=== PATIENT | female | born 1985 | race Caucasian/White ===

== ENCOUNTER → 2016-11-28 | Outpatient (CLI) | payer MEDICAID ==
--- NOTE | 2016-11-28 10:16 | RADIOLOGY REPORT (SQ) ---
EXAM DESCRIPTION: CHEST PA/LATERAL COMPLETED DATE/TIME: 11/28/2016 8:23 am REASON FOR STUDY: OTHER CHEST PAIN COMPARISON: Chest film 09/15/2012 CT angio chest 09/10/2012 EXAM PARAMETERS: NUMBER OF VIEWS: two views TECHNIQUE: Digital Frontal and Lateral radiographic views of the chest acquired. RADIATION DOSE: NA LIMITATIONS: none FINDINGS: LUNGS AND PLEURA: No opacities, masses or pneumothorax. No pleural effusion. MEDIASTINUM AND HILAR STRUCTURES: No masses or contour abnormalities. HEART AND VASCULAR STRUCTURES: Heart normal size. No evidence for failure. BONES: No acute findings. HARDWARE: None in the chest. OTHER: No other significant finding. IMPRESSION: NO SIGNIFICANT RADIOGRAPHIC FINDING IN THE CHEST. TECHNICAL DOCUMENTATION: JOB ID: [id number] [employer]- All Rights Reserved
--- NOTE | 2016-11-28 10:21 | WOMENS IMAGING REPORT ---
EXAM DESCRIPTION: U/S ABDOMEN LIMITED COMPLETED DATE/TIME: 11/28/2016 8:49 am REASON FOR STUDY: RIGHT UPPER QUADRANT PAIN R10.11 RIGHT UPPER QUADRANT PAIN R07.89 OTHER CHEST PA IN COMPARISON: 02/16/2013 TECHNIQUE: Dynamic and static grayscale images acquired of the abdomen and recorded on PACS. Additio nal selected color Doppler and spectral images recorded. LIMITATIONS: None. FINDINGS: PANCREAS: No masses. Visualized pancreatic duct normal caliber. LIVER: 17.2 cm. Increased echogenicity. No masses. LIVER VASCULATURE: Normal directional flow of the main portal vein and hepatic veins. GALLBLADDER: No stones. Normal wall thickness. No pericholecystic fluid. ULTRASOUND-DETECTED CANCINO'S SIGN: Negative. INTRAHEPATIC DUCTS AND COMMON DUCT: CBD and intrahepatic ducts normal caliber. No filling defects. INFERIOR VENA CAVA: Normal flow. AORTA: No aneurysm. RIGHT KIDNEY: Normal size, 12.4 x 5 x 5.6 cm. Normal echogenicity. No solid or suspicious masses. No hydronephrosis. No calcifications. PERITONEAL AND RIGHT PLEURAL SPACE: No ascites or effusions. OTHER: No other significant findings. IMPRESSION: Mild fatty infiltration of the liver. TECHNICAL DOCUMENTATION: JOB ID: [id number] [employer]- All Rights Reserved
== END ==
LOC: RAD 07:35
PROVIDERS: ATTEND Family Medicine
DX: R10.11 Right upper quadrant pain (principal)
CPT/HCPCS: 71020; 76705

== ENCOUNTER → 2016-12-09 | Outpatient (CLI) | payer MEDICAID ==
--- NOTE | 2016-12-09 15:02 | RADIOLOGY REPORT (SQ) ---
EXAM DESCRIPTION: NM HIDA SCAN WITH CCK COMPLETED DATE/TIME: 12/09/2016 1:46 pm REASON FOR STUDY: RUQ ABD PAIN (R10.11) R10.11 RIGHT UPPER QUADRANT PAIN COMPARISON: None. RADIONUCLIDE AND DOSE: DOSAGE RADIONUCLIDE: 5.5 millicuries Tc99m mebrofenin DOSAGE CCK: 2.0 micrograms. DOSAGE MORPHINE: Not required. The route of agent administration: Intravenous TECHNIQUE: Serial imaging right upper quadrant up to 60 minutes following injection of radionuclide. CCK injected after gallbladder visualized. LIMITATIONS: None. FINDINGS: LIVER: Normal visualization without areas of photopenia. INTRA AND EXTRAHEPATIC BILE DUCTS: Normal accumulation of activity. GALLBLADDER: Normal visualization. Calculated Ejection Fraction of 34%. Below the normal value of 35 % or greater. PHYSICAL RESPONSE: Patients presenting complaint was reproduced. OTHER: No other significant finding. IMPRESSION: LOW GALLBLADDER EJECTION FRACTION. EVIDENCE FOR BILIARY DYSKINESIS. NO CYSTIC OR COMMO N DUCT OBSTRUCTION. TECHNICAL DOCUMENTATION: JOB ID: [id number] [employer]- All Rights Reserved
== END ==
LOC: RAD 07:25
PROVIDERS: ATTEND Family Medicine
DX: R10.11 Right upper quadrant pain (principal)
CPT/HCPCS: 78227; A9537; J2805

== ENCOUNTER 2017-05-31 13:51 | Emergency (ER) | payer MEDICAID ==
[2017-05-31 14:02] VITALS: BP 90/55
--- NOTE | 2017-05-31 14:18 | ER Document Report ---
ED General - General Chief Complaint: Toe Injury Stated Complaint: RIGHT PINKY TOE INJURY Mode of Arrival: Wheelchair Information source: Patient TRAVEL OUTSIDE OF THE [place] IN LAST 30 DAYS: No - HPI Notes: 32-year-old female presents today with complaints of right fifth toe pain after she dropped a heavy object on her foot approximately 1 hour ago. Denies head trauma or change in loc. pain is 5/10,throbbing. unable to bear full weight. nothing makes better, ambulation makes worse. tried otc pains taken without full relief. pain is progressive and constant. pt has not tried icing or elevating foot. denies any n/t in foot. denies any other area of injury. Denies fevers, chills, chest pain,palpitations, shortness of breath, dyspnea, nausea, vomiting, diarrhea, abdominal pain, hematuria,blurred vision, double vision, loss of vision, speech changes, LH, dizziness, syncope, headaches, wheezing, ST, URI, neck pain, weakness, bowel or bladder dysfunction, saddle anesthesia, numbness or tingling in bilateral upper or lower extremities equally , muscle paralysis, weakness in bilateral upper or lower extremities equally or rash. Denies IV drug use. E - Related Data Allergies/Adverse Reactions: Baby Powder Adverse Reaction (Intermediate, Uncoded 05/31/17 13:52) Past Medical History - General Information source: Patient - Social History Smoking Status: Unknown if Ever Smoked Family History: Reviewed & Not Pertinent Patient has suicidal ideation: No Patient has homicidal ideation: No Renal/ Medical History: Denies: Hx Peritoneal Dialysis Psychiatric Medical History: Reports: Hx Bipolar Disorder, Hx Depression Past Surgical History: Reports: Hx Section - x3, Hx Tubal Ligation, Hx Vascular Surgery - left arm - Immunizations Immunizations up to date: Yes Hx Diphtheria, Pertussis, Tetanus Vaccination: Yes Review of Systems - Review of Systems Constitutional: No symptoms reported EENT: No symptoms reported Cardiovascular: No symptoms reported Respiratory: No symptoms reported Gastrointestinal: No symptoms reported Genitourinary: No symptoms reported Female Genitourinary: No symptoms reported Musculoskeletal: See HPI Skin: No symptoms reported Hematologic/Lymphatic: No symptoms reported Neurological/Psychological: No symptoms reported Physical Exam - Vital signs Vitals: Temp Pulse Resp BP Pulse Ox 98.1 F 86 16 90/55 L 97 05/31/17 13:59 05/31/17 13:59 05/31/17 13:59 05/31/17 13:59 05/31/17 13:59 - Notes Notes: PHYSICAL EXAMINATION: GENERAL: Well-appearing, well-nourished and in no acute distress. HEAD: Atraumatic, normocephalic. EYES: Pupils equal round and reactive to light, extraocular movements intact, conjunctiva are normal. ENT: Nares patent, oropharynx clear without exudates. Moist mucous membranes. NECK: Normal range of motion, supple without lymphadenopathy LUNGS: Breath sounds clear to auscultation bilaterally and equal. No wheezes rales or rhonchi. HEART: Regular rate and rhythm without murmurs ABDOMEN: Soft, nontender, nondistended abdomen. No guarding, no rebound. No masses appreciated. Female : deferred Musculoskeletal: Normal range of motion, no pitting or edema. No cyanosis. right 5th foot with STS and tenderness on 5th metatarsal bones with palpation on MTJ. Unable to palpate a step-off. No open lesions. squeeze test negative. dtr +2 BLE. Limited APROM. distal pulses + 2 in BUE. full motor and sensory function. No vascular compromise. Ankle exam within normal limits. No noted lacerations, lesions, ulcers or break in the skin. NEUROLOGICAL: Cranial nerves grossly intact. Normal speech, normal gait. Normal sensory, motor exams PSYCH: Normal mood, normal affect. SKIN: Warm, Dry, normal turgor, no rashes or lesions noted. Dictation was performed using [employer] voice recognition software Course - Re-evaluation Re-evalutation: At this time will discharge with return precautions and follow-up recommendations. Verbal discharge instructions given a the bedside and opportunity for questions given. Medication warnings reviewed. Patient is in agreement with this plan and has verbalized understanding of return precautions and the need for primary care follow-up in the next 24-72 hours. After performing a Medical Screening Examination, I estimate there is LOW risk for closed FRACTURE, COMPARTMENT SYNDROME, TENDON RUPTURE, ACUTE NEUROVASCULAR INJURY, or RETAINED FOREIGN BODY, thus I consider the discharge disposition reasonable. Also, there is no evidence or peritonitis, sepsis, or toxicity. I have reevaluated this patient multiple times and no significant life threatening changes are noted. The patient and I have discussed the diagnosis and risks, and we agree with discharging home with close follow-up with the understanding that symptoms and presentations can change. We also discussed returning to the Emergency Department immediately if new or worsening symptoms occur. We have discussed the symptoms which are most concerning (e.g., changing or worsening pain, fever, numbness, weakness, cool or painful digits) that necessitate immediate return. 05/31/17 14:43 - Vital Signs Vital signs: Temp Pulse Resp BP Pulse Ox 98.1 F 86 16 90/55 L 97 05/31/17 13:59 05/31/17 13:59 05/31/17 13:59 05/31/17 13:59 05/31/17 13:59 - Diagnostic Test Radiology reviewed: Reports reviewed Radiology results interpreted by me: 05/31/17 14:43 right toe xray of 5th toe NAD per RAD Discharge - Discharge Clinical Impression: Sprain of toe, fifth, right Qualifiers: Encounter type: initial encounter Qualified Code(s): S93.504A - Unspecified sprain of right lesser toe(s), initial encounter Condition: Good Instructions: Sprained Toe ([facility]) Additional Instructions: Sprained Toe Your toe injury is a sprain. A sprain is an over-stretching or tearing of the ligaments which guard the joints. The injury may require a few weeks of protection while it heals. Toe sprains usually do not require a splint. Instead, the injured toe is taped to an adjacent toe. Ice packs and elevation help reduce swelling. Complete healing takes about three weeks. Sometimes a severe toe sprain may require a special shoe, cast, or walking boot before you can bear weight comfortably on the foot. Your physician has assessed the seriousness of the ligament injury in your toe, and has outlined the initial treatment plan. Understand that this treatment may change, depending on how your toe progresses. If further visits were recommended, it is important that you follow up as instructed. Call the doctor at once if there is severe pain or numbness in the toe. You do not have evidence of a fracture on today's xrays. Your pain is likely to do soft tissue swelling and inflammation. This can last up to 6 weeks before completely resolving. You should continue to apply ice to the area regularly, keep the affected area elevated, and take ibuprofen 600mg every 6 hours as needed for pain. Please return if you have worsening pain, weakness, numbness, notice increasing redness or swelling to the area, develop a fever, or have any other symptoms that are concerning to you. Please follow up with the [facility] [address] [place] [phone] Return immediately for any new or worsening symptoms. Follow up with primary care provider, call tomorrow to make followup appointment. Prescriptions: Meloxicam 7.5 mg PO DAILY #7 tablet Forms: Return to Work Referrals: ILEANA ROA MD [ACTIVE STAFF] - Follow up as needed TAPAN SORIANO MD [COMMUNITY BASED STAFF] - Follow up in 1 week
--- NOTE | 2017-05-31 14:37 | RADIOLOGY REPORT (SQ) ---
EXAM DESCRIPTION: FOOT RIGHT COMPLETE COMPLETED DATE/TIME: 05/31/2017 2:30 pm REASON FOR STUDY: weight to R 5th toe x 1 hour ago, + pain COMPARISON: None. NUMBER OF VIEWS: Three views. TECHNIQUE: AP, lateral and oblique radiographic images acquired of the right foot. LIMITATIONS: None. FINDINGS: MINERALIZATION: Normal. BONES: No acute fracture or dislocation. No worrisome bone lesions. JOINTS: No effusions. SOFT TISSUES: No soft tissue swelling. No foreign body. OTHER: No other significant finding. IMPRESSION: NEGATIVE STUDY OF THE RIGHT FOOT. NO RADIOGRAPHIC EVIDENCE OF ACUTE INJURY. TECHNICAL DOCUMENTATION: JOB ID: [id number] [employer]- All Rights Reserved Reading location - IP/workstation name: [email or web address]
== END 2017-05-31 15:18 | disposition home or self-care (01) ==
LOC: ER 13:51
DX: S93.504A Unspecified sprain of right lesser toe(s), initial encounter (principal); W22.8XXA Striking against or struck by other objects, initial encounter
CPT/HCPCS: 99283

== ENCOUNTER 2018-12-31 05:35 | Day surgery (SDC) | payer MEDICAID ==
[2018-12-28 12:22] LABS: APPEARANCE,URINE SLIGHTLY-CLOUDY; BILIRUBIN,URINE NEGATIVE (NEGATIVE); COLOR,URINE YELLOW; GLUCOSE, URINE NEGATIVE (NEGATIVE); KETONES,URINE NEGATIVE (NEGATIVE); LEUKOCYTE ESTERASE,URINE NEGATIVE (NEGATIVE); NITRITE,URINE NEGATIVE (NEGATIVE); PROTEIN,URINE NEGATIVE (NEGATIVE); URINE SPECIFIC GRAVITY 1.019; UROBILINOGEN,URINE NEGATIVE mg/dL (<2.0)
[2018-12-28 12:45] LABS: ALBUMIN 4.2 g/dL (3.5-5.0); ALKALINE PHOSPHATASE 85 U/L (38-126); ANION GAP 7 (5-19); ASPARTATE AMINO TRANSFERASE 19 U/L (14-36); BILIRUBIN,DIRECT 0.1 mg/dL (0.0-0.4); BILIRUBIN,TOTAL 0.8 mg/dL (0.2-1.3); BLOOD UREA NITROGEN 9 mg/dL (7-20); CALCIUM 9.1 mg/dL (8.4-10.2); CARBON DIOXIDE 27 mmol/L (22-30); CHLORIDE 105 mmol/L (98-107); GLUCOSE 84 mg/dL (75-110); POTASSIUM 4.2 mmol/L (3.6-5.0); TOTAL PROTEIN 7.5 g/dL (6.3-8.2)
[~2018-12-31 05:35] MED LIST: CEFAZOLIN SODIUM 1 GM in DEXTROSE 5%-WATER 50 ML IV PRN; LACTATED RINGERS 1000 ML IV PRN; LIDOCAINE 0.5% INJ-PF (5 MG/ML) 50 ML SDV SUBCUT PRN
[2018-12-31] MEDS ORDERED: HYDROMORPHONE HCL INJ/PF 2 MG/ML AMPULE ONE (06:57)
[2018-12-31] MEDS ORDERED: FENTANYL CITRATE INJ/PF 250 MCG/5 ML AMPULE ONE ×2 (06:57→07:05)
[2018-12-31] MEDS ORDERED: MIDAZOLAM 2 MG/2 ML INJ ONE (06:57)
[2018-12-31] MEDS ORDERED: KETAMINE HCL INJ 500 MG/10 ML VIAL ONE (06:57)
[2018-12-31] MEDS ORDERED: PROPOFOL INJ 200 MG/20 ML VIAL IV ONE (06:58)
[2018-12-31 07:14] LABS: HEMATOCRIT 36.5 % (36.0-47.0); HEMOGLOBIN 12.5 g/dL (12.0-15.5); MEAN CORPUSCULAR HEMOGLOBIN 31.7 pg (27.0-33.4); MEAN CORPUSCULAR HGB CONC 34.3 g/dL (32.0-36.0); MEAN CORPUSCULAR VOLUME 92 fl (80-97); PLATELET COUNT 163 10^3/uL (150-450); RED BLOOD COUNT 3.96 10^6/uL (3.72-5.28); RED CELL DISTRIBUTION WIDTH 13.6 % (11.5-14.0); WHITE BLOOD COUNT 5.5 10^3/uL (4.0-10.5)
[2018-12-31 07:55] LABS: URINE AMPHETAMINES SCREEN NEGATIVE; URINE BARBITURATES SCREEN NEGATIVE; URINE COCAINE SCREEN NEGATIVE; URINE METHADONE SCREEN NEGATIVE; URINE PHENCYCLIDINE SCREEN NEGATIVE
[2018-12-31 08:10] LABS: URINE BENZODIAZEPINES SCREEN NEGATIVE
[2018-12-31 08:12] LABS: URINE MARIJUANA (THC) SCREEN UNCONFIRMED POSITIVE
[2018-12-31] MEDS ORDERED: BUPIVACAINE HCL 0.25 % INJ/PF (2.5 MG/1 ML) 30 ML VIAL ONE (08:37)
[2018-12-31] MEDS ORDERED: DIPHENHYDRAMINE HCL 50 MG/ML VIAL IV PRN (09:30)
[2018-12-31] MEDS ORDERED: ONDANSETRON HCL INJ/PF 4 MG/2 ML SDV IV PRN (09:30)
[2018-12-31] MEDS ORDERED: FENTANYL CITRATE INJ/PF 100 MCG/2 ML AMPUL IV PRN ×3 (09:30)
[2018-12-31] MEDS ORDERED: PROMETHAZINE HCL INJ 25 MG/1 ML VIAL IV PRN ×3 (09:30→14:10)
[2018-12-31] MEDS ORDERED: MEPERIDINE HCL/PF INJ 25 MG/1 ML DISP.SYRIN IV PRN (09:30)
[2018-12-31] MEDS ORDERED: HYDROMORPHONE HCL INJ/PF 2 MG/ML AMPULE IV PRN (09:31)
[2018-12-31] MEDS: MORPHINE SULFATE 10 MG/ML INJ ONE ×6 (10:46→11:30)
[2018-12-31] MEDS ORDERED: ACETAMINOPHEN 1,000 MG/100 ML RTUPB IV ONE ×2 (10:51→19:00)
[2018-12-31] MEDS ORDERED: RINGERS SOLUTION,LACTATED 1,000 ML IV PRN (13:05)
[2018-12-31] MEDS ORDERED: IBUPROFEN 800 MG TABLET PO PRN (13:06)
[2018-12-31] MEDS ORDERED: PROMETHAZINE HCL INJ 25 MG/1 ML VIAL ONE (13:15)
--- NOTE | 2018-12-31 14:30 | Operative Report ---
Operative Report DATE OF SURGERY: 12/31/18 PREOPERATIVE DIAGNOSIS: abnormal uterine bleeding, pelvic adhesive disease, pel bruce pain POSTOPERATIVE DIAGNOSIS: same OPERATION: Robotic assisted total laparoscopic hysterectomy bilateral salpingectomy as of adhesions SURGEON: SAMANTHA ABARCA 1ST TRACTOR OPERATOR BATTERY: MARCELLO PAYTON 2ND Customer Support Consultant: NYDIA ARROYO ANESTHESIA: GA TISSUE REMOVED OR ALTERED: uterus, cervix and bilateral fallopian tube segments COMPLICATIONS: none ESTIMATED BLOOD LOSS: 300 INTRAOPERATIVE FINDINGS: Umbilical hernia mesh midline, uterus approximately 12 weeks size, fallopian tube fimbriated ends present bilaterally, tubal adhesions of the omentum to the anterior abdominal wall, multiple pelvic adhesions of the left adnexa adhering the left ovary to the pelvic sidewall. Both ovaries were normal in appearance for a premenopausal female PROCEDURE: Patient was taken to the operating room prepared and draped in normal sterile fashion in dorsolithotomy position. Under sterile conditions a Chen catheter was placed to gravity. Speculum was placed into the vagina and the cervix was grasped on the anterior lip with a single-tooth tenaculum. The cervix was then dilated to accommodate a medium V care uterine manipulator. Manipulate it was placed gloves were changed and attention was turned to the upper portion of the case. Dr. Payton placed a 5 mm port at the left superior costal margin. The abdomen was then inflated with approximately 2 L of CO2 gas through this port the laparoscopic camera was introduced. The above findings were noted. Under direct visualization and air seal port was placed in the right lower quadrant which an atraumatic grasper was introduced by Dr. Payton and he proceeded to dissect the omental adhesions to anterior abdominal wall and outlined the position of the hernia mesh. Please see his dictation for details. two 5 mm ports were placed approximately 10 cm on either side of the umbilicus. The robot was then docked with the vessel sealer placed on the patient's left and the monopolar scissors placed placed on the patient's right. I then unscrubbed and set at the robotic console beginning with the left adnexa fallopian tube was transected from the uterus using the vessel sealer and monopolar scissors as needed. The fallopian tube was then removed through the assistance port. The ovarian ligament was then transected using the vessel sealer. The uterine artery was skeletonized using blunt dissection and ligated using the vessel sealer down to the level of the external cervical os. The bladder flap was then begun using monopolar scissors and blunt dissection over the V care cup noted through the mucosa. Attention was then turned to the right adnexa where the fallopian tube was transected in a similar fashion. The utero-ovarian ligament was transected using the vessel sealer. The Uterine artery was then transected using the vessel sealer and skeletonized using blunt dissection. The vessel sealer was again used to completely transect the uterine artery down to the level of the external cervical os. The bladder flap was completed using similar sharp and blunt dissection. Once the bladder was felt to be adequately away from the lower uterine segment, the colpotomy was begun on the anterior aspect of the cervix following the outline of the V care cup mucosa. The cup was followed in a circumferential fashion completely around the cervix estimate was completely freed. The specimen was then removed through the vaginal defect. The instruments were then changed to a Stanton needle regional flatbed truck driver and pro-grasp. AV lock needle was introduced through the assistance port. The lock needle was used to close the vaginal cuff and hemostasis. The needle was then removed through the assistance port. The peritoneal cavity was carefully inspected the ureters were noted to both be peristalsing and there was no signs of hydroureter. The robot was then undocked. The fascia was closed at the umbilical skin incision seen 0 Vicryl 3 skin incisions were closed using 4-0 Vicryl. Sponge lap and needle counts were correct x2 and the patient was taken to recovery in stable condition.
[2018-12-31] MEDS: KETOROLAC TROMETHAMINE INJ/PF 30 MG/1 ML SDV IV SCH ×2 (15:28→21:33)
[2018-12-31] MEDS: OXYCODONE-ACETAMINOPHEN 5-325 MG TABLET PO PRN (16:11)
[2018-12-31] MEDS ORDERED: GLYCOPYRROLATE 1 MG/5 ML VIAL ONE (17:53)
[2018-12-31] MEDS ORDERED: SUCCINYLCHOLINE CHLORIDE INJ 200 MG/10 ML VIAL ONE (17:53)
[2018-12-31] MEDS ORDERED: DEXAMETHASONE SOD PHOSPHATE INJ 4 MG/1 ML VIAL ONE (17:53)
[2018-12-31] MEDS ORDERED: ROCURONIUM BROMIDE INJ 50 MG/5 ML VIAL IV ONE (17:53)
[2018-12-31] MEDS ORDERED: KETOROLAC TROMETHAMINE 60 MG/2 ML SDV ONE (17:53)
[2018-12-31] MEDS ORDERED: NEOSTIGMINE METHYLSULFATE 10 MG/10 ML VIAL ONE (17:53)
[2018-12-31] MEDS ORDERED: LIDOCAINE 2% INJ-PF (20 MG/ML) 2 ML AMPUL ONE (17:53)
[2018-12-31] MEDS ORDERED: METOCLOPRAMIDE HCL INJ/PF 10 MG/2 ML SDV ONE (17:53)
[2018-12-31] MEDS ORDERED: ONDANSETRON HCL INJ/PF 4 MG/2 ML SDV ONE (17:53)
[2019-01-01] MEDS: OXYCODONE-ACETAMINOPHEN 5-325 MG TABLET PO PRN ×2 (00:27→08:16)
[2019-01-01 05:04] LABS: ABSOLUTE EOSINOPHILS # (AUTO) 0.1 10^3/uL (0.0-0.6); ABSOLUTE MONOCYTES (AUTO) 0.8 10^3/uL (0.1-1.4); ABSOLUTE NEUT (AUTO) 5.1 10^3/uL (1.7-8.2); BASOPHILS % (AUTO) 0.3 % (0-2); EOSINOPHILS % (AUTO) 1.3 % (0-6); HEMATOCRIT 27.9 % (36.0-47.0); LYMPHOCYTES % (AUTO) 25.5 % (13-45); MEAN CORPUSCULAR HEMOGLOBIN 31.7 pg (27.0-33.4); MEAN CORPUSCULAR HGB CONC 34.5 g/dL (32.0-36.0); MEAN CORPUSCULAR VOLUME 92 fl (80-97); MONOCYTES % (AUTO) 9.5 % (3-13); PLATELET COUNT 133 10^3/uL (150-450); RED BLOOD COUNT 3.03 10^6/uL (3.72-5.28); RED CELL DISTRIBUTION WIDTH 13.6 % (11.5-14.0); SEGMENTED NEUTROPHILS % (AUTO) 63.4 % (42-78); TOTAL CELLS COUNTED % (AUTO) 100 %
[2019-01-01] MEDS: KETOROLAC TROMETHAMINE INJ/PF 30 MG/1 ML SDV IV SCH (05:07)
[2019-01-01 05:19] LABS: HEMOGLOBIN 9.6 g/dL (12.0-15.5)
[2019-01-01 08:21] VITALS: BP 104/65
== END 2019-01-01 08:40 | disposition home or self-care (01) ==
LOC: OROUT 05:35 → 2S 12:30 → OROUT 01-01 08:40
PROVIDERS: ATTEND Obstetrics & Gynecology
DX: N80.3 Endometriosis of pelvic peritoneum (principal); N93.9 Abnormal uterine and vaginal bleeding, unspecified; R10.2 Pelvic and perineal pain; N73.6 Female pelvic peritoneal adhesions (postinfective); N72 Inflammatory disease of cervix uteri
CPT/HCPCS: 58571; S2900; 36415; 80053; 80307; 81001; 81025; 840; 85025; 85027; 86850; 86900; 86901; 88307; J0131; J0330; J0690; J1100; J1170; J1885; J2250; J2270; J2405; J2550; J2704; J2710; J2765; J3010; J3490; J7060; J7120

== ENCOUNTER 2019-01-19 15:41 | Emergency (ER) | payer MEDICAID ==
[2019-01-19] MEDS ORDERED: ONDANSETRON 4 MG TAB.RAPDIS PO ONE (16:18)
--- NOTE | 2019-01-19 16:18 | ER Document Report ---
ED Medical Screen (RME) - General Chief Complaint: Abdominal Pain Stated Complaint: ABDOMINAL PAIN, NAUSEA/POST HYSTERECTOMY Time Seen by Provider: 01/19/19 16:14 Primary Care Provider: TERESA BOWEN FNP-C [Primary Care Provider] - Follow up as needed Mode of Arrival: Ambulatory Information source: Patient Notes: 33-year-old female presents to ED for complaint of abdominal pain that is much worse starting last night. She states she had a hysterectomy 3 weeks ago and was feeling fine last night but also it feels like someone was pulling on the mesh that they did not disturb when they were doing the hysterectomy. She states it feels like someone is pulling it and is tearing. She states she is very sore. She states she also has indigestion in her chest. She states she was very nauseated last night and today it is getting unbearable. Patient is alert oriented respirations regular nonlabored speaking in full sentences walks with even steady gait. I have greeted and performed a rapid initial assessment of this patient. A comprehensive ED assessment and evaluation of the patient, analysis of test results and completion of medical decision making process will be conducted by an additional ED providers. TRAVEL OUTSIDE OF THE [place] IN LAST 30 DAYS: No - Related Data Allergies/Adverse Reactions: Baby Powder Adverse Reaction (Intermediate, Uncoded 12/31/18 05:49) Past Medical History - General Information source: Patient - Social History Cigarette use (# per day): No Chew tobacco use (# tins/day): No Frequency of alcohol use: None Drug Abuse: Marijuana Lives with: Family - Past Medical History Cardiac Medical History: Denies: Hx Coronary Artery Disease, Hx Heart Attack, Hx Hypertension Pulmonary Medical History: Denies: Hx Asthma, Hx Bronchitis, Hx COPD, Hx Pneumonia Neurological Medical History: Denies: Hx Cerebrovascular Accident, Hx Seizures Renal/ Medical History: Denies: Hx Peritoneal Dialysis Musculoskeltal Medical History: Denies Hx Arthritis Psychiatric Medical History: Reports: Hx Bipolar Disorder, Hx Depression Past Surgical History: Reports: Hx Section - x3, Hx Cholecystectomy, Hx Genitourinary Surgery, Hx Hysterectomy, Hx Tubal Ligation, Hx Vascular Surgery - left arm, Other - You know when you last tetanus was ventral hernia repairs - Immunizations Immunizations up to date: No Hx Diphtheria, Pertussis, Tetanus Vaccination: No Physical Exam - Vital signs Vitals: Temp Pulse Resp BP Pulse Ox 98.0 F 93 16 97/64 L 97 01/19/19 16:05 01/19/19 16:05 01/19/19 16:05 01/19/19 16:05 01/19/19 16:05 Course - Vital Signs Vital signs: Temp Pulse Resp BP Pulse Ox 98.0 F 93 16 97/64 L 97 01/19/19 16:05 01/19/19 16:05 01/19/19 16:05 01/19/19 16:05 01/19/19 16:05 Doctor's Discharge - Discharge Referrals: TERESA BOWEN, CARDIAC REHABILITATION PROGRAM DIRECTOR-C [Primary Care Provider] - Follow up as needed
[2019-01-19 17:13] LABS: ABSOLUTE BASOPHILS # (AUTO) 0.1 10^3/uL (0.0-0.2); ABSOLUTE EOSINOPHILS # (AUTO) 0.1 10^3/uL (0.0-0.6); ABSOLUTE LYMPHOCYTES (AUTO) 1.7 10^3/uL (0.5-4.7); ABSOLUTE MONOCYTES (AUTO) 0.6 10^3/uL (0.1-1.4); ABSOLUTE NEUT (AUTO) 3.7 10^3/uL (1.7-8.2); BASOPHILS % (AUTO) 0.8 % (0-2); HEMATOCRIT 39.2 % (36.0-47.0); HEMOGLOBIN 13.3 g/dL (12.0-15.5); LYMPHOCYTES % (AUTO) 27.6 % (13-45); MEAN CORPUSCULAR HEMOGLOBIN 31.4 pg (27.0-33.4); MEAN CORPUSCULAR VOLUME 93 fl (80-97); MONOCYTES % (AUTO) 9.2 % (3-13); PLATELET COUNT 209 10^3/uL (150-450); RED BLOOD COUNT 4.24 10^6/uL (3.72-5.28); RED CELL DISTRIBUTION WIDTH 13.8 % (11.5-14.0); SEGMENTED NEUTROPHILS % (AUTO) 60.4 % (42-78); TOTAL CELLS COUNTED % (AUTO) 100 %; WHITE BLOOD COUNT 6.1 10^3/uL (4.0-10.5)
[2019-01-19 17:21] LABS: APPEARANCE,URINE CLEAR; BILIRUBIN,URINE NEGATIVE (NEGATIVE); COLOR,URINE YELLOW; GLUCOSE, URINE NEGATIVE (NEGATIVE); KETONES,URINE NEGATIVE (NEGATIVE); PROTEIN,URINE NEGATIVE (NEGATIVE); URINE SPECIFIC GRAVITY 1.024; UROBILINOGEN,URINE NEGATIVE mg/dL (<2.0)
[2019-01-19 17:35] LABS: ALBUMIN 4.9 g/dL (3.5-5.0); ALKALINE PHOSPHATASE 102 U/L (38-126); ANION GAP 11 (5-19); ASPARTATE AMINO TRANSFERASE 21 U/L (14-36); BILIRUBIN,DIRECT 0.2 mg/dL (0.0-0.4); BILIRUBIN,TOTAL 0.7 mg/dL (0.2-1.3); BLOOD UREA NITROGEN 14 mg/dL (7-20); CALCIUM 9.9 mg/dL (8.4-10.2); CARBON DIOXIDE 26 mmol/L (22-30); CHLORIDE 103 mmol/L (98-107); GLUCOSE 87 mg/dL (75-110); POTASSIUM 3.9 mmol/L (3.6-5.0); TOTAL PROTEIN 8.7 g/dL (6.3-8.2)
[2019-01-19] MEDS ORDERED: NORMAL SALINE 1000 ML 1,000 ML IV ONE (19:04)
[2019-01-19] MEDS: FENTANYL CITRATE INJ/PF 100 MCG/2 ML AMPUL IV PRN ×2 (19:18→22:24)
--- NOTE | 2019-01-19 19:20 | ER Document Report ---
ED General - General Chief Complaint: Abdominal Pain Stated Complaint: ABDOMINAL PAIN, NAUSEA/POST HYSTERECTOMY Time Seen by Provider: 01/19/19 16:14 Primary Care Provider: TERESA BOWEN FNP-C [NO LOCAL MD] - Follow up as needed Mode of Arrival: Ambulatory TRAVEL OUTSIDE OF THE [place] IN LAST 30 DAYS: No - HPI Notes: Ms. Mariano is a 33-year-old female with a history of multiple prior abdominal surgical procedures as well as a history of endometriosis approximately 3 weeks status post laparoscopic hysterectomy which was apparently done primarily for dysfunctional uterine bleeding with a chief complaint of epigastric pain and vomiting which is developed gradually over the last 2 days. No associated fever, chills, or dysuria. Past surgical procedures have included cholecystectomy, hysterectomy, x2 and ventral hernia repair x2. Patient denies any known past history of bowel obstruction. She has had chronic recurrent abdominal pain related to endometriosis also. She was seen in the office today by [facility] and sent here for further evaluation to include CT scan. She has vomited twice earlier today and still feels somewhat nauseated. - Related Data Allergies/Adverse Reactions: Baby Powder Adverse Reaction (Intermediate, Uncoded 12/31/18 05:49) Past Medical History - General Information source: Patient, Relative - Social History Smoking Status: Never Smoker Cigarette use (# per day): No Chew tobacco use (# tins/day): No Frequency of alcohol use: None Drug Abuse: Marijuana Lives with: Family Family History: Reviewed & Not Pertinent Patient has suicidal ideation: No Patient has homicidal ideation: No - Past Medical History Cardiac Medical History: Denies: Hx Coronary Artery Disease, Hx Heart Attack, Hx Hypertension Pulmonary Medical History: Denies: Hx Asthma, Hx Bronchitis, Hx COPD, Hx Pneumonia Neurological Medical History: Denies: Hx Cerebrovascular Accident, Hx Seizures Renal/ Medical History: Denies: Hx Peritoneal Dialysis Musculoskeletal Medical History: Denies Hx Arthritis Psychiatric Medical History: Reports: Hx Bipolar Disorder, Hx Depression Past Surgical History: Reports: Hx Section - x3, Hx Cholecystectomy, Hx Genitourinary Surgery, Hx Hysterectomy, Hx Tubal Ligation, Hx Vascular Surgery - left arm, Other - You know when you last tetanus was ventral hernia repairs - Immunizations Immunizations up to date: No Hx Diphtheria, Pertussis, Tetanus Vaccination: No Review of Systems - Review of Systems Notes: Constitutional: Negative for fever. HENT: Negative for sore throat. Eyes: Negative for visual changes. Cardiovascular: Negative for chest pain. Respiratory: Negative for shortness of breath. Gastrointestinal: As per HPI. Genitourinary: Negative for dysuria. No vaginal bleeding or discharge. Musculoskeletal: Negative for back pain. Skin: Negative for rash. Neurological: Negative for headaches, weakness or numbness. 10 point ROS negative except as marked above and in HPI. Physical Exam - Vital signs Vitals: Temp Pulse Resp BP Pulse Ox 98.0 F 93 16 97/64 L 97 01/19/19 16:05 01/19/19 16:05 01/19/19 16:05 01/19/19 16:05 01/19/19 16:05 - Notes Notes: GENERAL: Well-developed well-nourished appearing uncomfortable. SKIN: Good turgor no rashes. HEAD: Normocephalic atraumatic. EYES: PERRLA. Conjunctivae and sclerae clear. EARS: CANALS AND TMS CLEAR. NOSE: CLEAR. MOUTH: Moist mucosa. Good dentition. No stridor or edema. No drooling. NECK: Supple. No masses or thyromegaly. No adenopathy. Carotids 2+ without bruits. No JVD. BACK: Symmetrical without tenderness. CHEST: Respirations unlabored. Breath sounds clear and symmetrical. HEART: Regular rhythm. No murmur gallop or rub. ABDOMEN: Multiple healed laparoscopy scars over the abdominal wall. There is no obvious hernia. Abdomen is soft with mild tenderness of right upper quadrant and epigastrium without masses, organomegaly or rebound. Bowel sounds normally active. No bruits. GENITALIA: Deferred. EXTREMITIES: No edema. No calf tenderness. Cap refill less than 1.5 seconds. Dorsalis pedis and posterior tibial pulses 3+ and symmetrical. NEUROLOGICAL: GCS 15. Alert and oriented x3. Normal gait. Fluent speech. Cranial nerves II through XII intact. Sensorimotor and cerebellar normal. Normal tone. Psychiatric: Slightly blunted affect. Course - Re-evaluation Re-evalutation: 01/19/19 19:20 Primary concern would be possible small bowel obstruction or intra-abdominal abscess postop. Discomfort may be related to her endometriosis. We have requested CT scan abdomen pelvis with IV and oral contrast. Patient to remain n.p.o. and will have normal saline IV and fentanyl for pain. 01/19/19 22:52 CT abdomen pelvis with IV and oral contrast showed some nonspecific thickening of the rectum and the wall of the bladder. Urinalysis is unremarkable. She has no complaints in the rectal area. Unclear as to specific etiology of patient's current abdominal symptoms. She does however have a history of endometriosis and that would be my suspicion versus perhaps something musculoskeletal. She has an appointment with director of maternity services tomorrow. I will give her 6 tablets of Percocet for use overnight and some Zofran and recommend follow-up tomorrow with director of maternity services as previously scheduled. - Vital Signs Vital signs: Temp Pulse Resp BP Pulse Ox 98.0 F 74 20 102/47 L 99 01/19/19 19:55 01/19/19 19:55 01/19/19 19:55 01/19/19 19:55 01/19/19 19:55 - Laboratory Result Diagrams: 01/19/19 16:39 01/19/19 16:39 Laboratory results interpreted by me: 01/19/19 16:39 Total Protein 8.7 H - Diagnostic Test Radiology reviewed: Reports reviewed Discharge - Discharge Clinical Impression: Abdominal pain Qualifiers: Abdominal location: generalized Qualified Code(s): R10.84 - Generalized abdominal pain Condition: Stable Disposition: HOME, SELF-CARE Instructions: Abdominal Pain ([facility]) Additional Instructions: Follow-up with your director of maternity services tomorrow. Take prescribed medicine as needed to control symptoms overnight. Prescriptions: Oxycodone HCl/Acetaminophen [Percocet 5-325 mg Tablet] 1 - 2 tab PO Q4H PRN #6 tablet PRN Reason: Ondansetron [Zofran Odt 4 mg Tablet] 1 - 2 tab PO Q4H PRN #15 tab.rapdis PRN Reason: For Nausea/Vomiting Referrals: TERESA BOWEN FNP-C [NO LOCAL MD] - Follow up as needed
[2019-01-19] MEDS ORDERED: METOCLOPRAMIDE HCL INJ/PF 10 MG/2 ML SDV IV ONE (19:24)
--- NOTE | 2019-01-19 22:31 | RADIOLOGY REPORT (SQ) ---
EXAM DESCRIPTION: CT ABDOMEN PELVIS WITH IV CONTRAST COMPLETED DATE/TME: 01/19/2019 00:00 CLINICAL HISTORY: 33 years, Female, Abd pain r/o abscess or SBO COMPARISON: None. TECHNIQUE: 541 Images stored on PACS. All CT scanners at this facility use dose modulation, iterative reconstruction, and/or weight based dosing when appropriate to reduce radiation dose to as low as reasonably achievable (ALARA). [facility]: Dose Right [facility]: CareDose [facility]: Dose Right [facility]: Teradose 4D [facility]: Mavrx LIMITATIONS: None. FINDINGS: Limited evaluation of the lung bases is unremarkable. Osseous structures are grossly intact. Fatty infiltrative change to the liver. The spleen, adrenal glands, pancreas, kidneys are unremarkable. Surgical absence of the gallbladder. There is no evidence for bowel obstruction. Normal appendix. Probable follicular change to the ovaries bilaterally. Equivocal/subjective rectal wall thickening with some minor adjacent inflammatory changes. Subjective wall thickening of the urinary bladder however the urinary bladder is not distended. No free air or free fluid IMPRESSION: Subjective urinary bladder wall and rectal wall thickening. Minor adjacent inflammatory changes. Nonspecific cystitis/proctitis is considered. Fatty infiltrative change to the liver TECHNICAL DOCUMENTATION: Quality ID # [id number]: Final reports with documentation of one or more dose reduction techniques (e.g., Automated exposure control, adjustment of the mA and/or kV according to patient size, use of iterative reconstruction technique) copyright 2011 [employer]- All Rights Reserved
[2019-01-19 23:11] VITALS: BP 117/73
== END 2019-01-19 23:13 | disposition home or self-care (01) ==
LOC: ER 15:41
DX: R10.84 Generalized abdominal pain (principal); R13.10 Dysphagia, unspecified; R11.2 Nausea with vomiting, unspecified; Z90.710 Acquired absence of both cervix and uterus; Z90.49 Acquired absence of other specified parts of digestive tract
CPT/HCPCS: 36415; 85025; 80053; 81001; 74177; S0119; J3010; J2765; J7030; 96361; 96374; 96375; 99284

== ENCOUNTER → 2019-06-02 | Outpatient (CLI) | payer MEDICAID ==
--- NOTE | 2019-06-02 16:31 | RADIOLOGY REPORT (SQ) ---
EXAM DESCRIPTION: C SP 3 VWS OR LESS IMAGES COMPLETED DATE/TIME: 06/02/2019 4:11 pm REASON FOR STUDY: NECK PAIN WITH RADICULOPATHY COMPARISON: Cervical spine films 12/03/2011 NUMBER OF VIEWS: Two views TECHNIQUE: AP, lateral radiographic images acquired of the cervical spine. LIMITATIONS: Lateral film slightly rotated FINDINGS: MINERALIZATION: Normal. ALIGNMENT: There is reversal of cervical curvature, likely due to muscle spasm. Is similar compared cervical spine films 12/03/2011 VERTEBRAE: Vertebral bodies of normal height. DISCS: No significant disc space narrowing. No large osteophytes. HARDWARE: None in the spine. SOFT TISSUES: No masses or calcifications. Lung apices clear. OTHER: No other significant finding. IMPRESSION: Reversal of cervical curvature likely to muscle spasm TECHNICAL DOCUMENTATION: JOB ID: [id number] 2010 [employer]- All Rights Reserved Reading location - IP/workstation name: [email or web address]
== END ==
LOC: OD 15:29
PROVIDERS: ATTEND Nurse Practitioner Primary Care
DX: M54.12 Radiculopathy, cervical region (principal); M54.2 Cervicalgia
CPT/HCPCS: 72040

== ENCOUNTER → 2019-12-06 | Outpatient (CLI) | payer MEDICAID ==
--- NOTE | 2019-12-06 11:01 | RADIOLOGY REPORT (SQ) ---
EXAM DESCRIPTION: U/S ABDOMEN LIMITED W/O DOP IMAGES COMPLETED DATE/TIME: 12/06/2019 10:51 am REASON FOR STUDY: R10.9 UNSPECIFIED ABDOMINAL PAIN R10.9 UNSPECIFIED ABDOMINAL PAIN COMPARISON: CT dated 01/19/2019, abdominal ultrasound dated 11/28/2016 TECHNIQUE: Dynamic and static grayscale images acquired of the abdomen and recorded on PACS. Additio nal selected color Doppler and spectral images recorded. LIMITATIONS: None. FINDINGS: PANCREAS: No masses. Visualized pancreatic duct normal caliber. LIVER: The liver is mildly echogenic. No focal masses. LIVER VASCULATURE: Normal directional flow of the main portal vein and hepatic veins. GALLBLADDER: Prior cholecystectomy. ULTRASOUND-DETECTED CANCINO'S SIGN: Negative. INTRAHEPATIC DUCTS AND COMMON DUCT: The common bile duct is dilated measured at 10 mm. This is sligh tly larger when compared to recent CT done in January 2019. It measured approximately 8.7 mm at oj t time. AORTA: No aneurysm. RIGHT KIDNEY: Normal size. Normal echogenicity. No solid or suspicious masses. No hydronephrosis. No calcifications. PERITONEAL AND RIGHT PLEURAL SPACE: No ascites or effusions. OTHER: No other significant findings. IMPRESSION: 1. Mild increased echogenicity throughout the liver consistent with steatosis. 2. Dilated common bile duct measured 10 mm. No obvious distal stone or stricture by ultrasound eval uation. The duct is slightly larger in size when compared to prior CT done in January 2019. TECHNICAL DOCUMENTATION: JOB ID: [id number] 2010 [employer]- All Rights Reserved Reading location - IP/workstation name: [email or web address]
== END ==
LOC: RAD 10:00
PROVIDERS: ATTEND Surgery
DX: R10.9 Unspecified abdominal pain (principal); K83.8 Other specified diseases of biliary tract; K76.0 Fatty (change of) liver, not elsewhere classified
CPT/HCPCS: 76705